=== PATIENT | male | born 1975 | race Caucasian/White ===

== ENCOUNTER 2018-08-11 12:05 | Emergency (ER) | payer SELFPAY ==
[~2018-08-11] VITALS: Ht 180.3 cm; Wt 89.5 kg
[2018-08-11 12:13] VITALS: BP 143/89; PULSE 80; RESP 18; Ht 180.3 cm; Wt 89.5 kg
== END 2018-08-11 14:20 | disposition left against medical advice (07) ==
LOC: FTE 12:05
DX: Z53.21 Procedure and treatment not carried out due to patient leaving prior to being seen by health care provider (principal)